=== PATIENT | male | born 1990 | race African-American/Black ===

== ENCOUNTER 2019-03-20 14:45 | Emergency (ER) | payer MEDICAID, OTHER ==
[~2019-03-20] VITALS: Ht 190.5 cm; Wt 105.0 kg
[2019-03-20] MEDS ORDERED: IBUPROFEN 600MG TABLET PO ONE (17:45)
[2019-03-20 19:57] VITALS: BP 143/102
== END 2019-03-20 20:00 | disposition home or self-care (01) ==
LOC: ER 14:45
DX: S93.401A Sprain of unspecified ligament of right ankle, initial encounter (principal); W10.9XXA Fall (on) (from) unspecified stairs and steps, initial encounter; Y93.89 Activity, other specified; Y92.89 Other specified places as the place of occurrence of the external cause; R03.0 Elevated blood-pressure reading, without diagnosis of hypertension
CPT/HCPCS: 73590; 73610; 99283; Z7610